=== PATIENT | male | born 1945 | race Caucasian/White ===

== ENCOUNTER 2016-09-18 07:40 | Day surgery (SDC) | payer OTHER ==
--- NOTE | ~2016-09-18 | EGD ---
EGD REPORT [facility] [address] [id number] NAME: PABLO PARIS : [birth year] STATUS : REG [facility]#: [id number] AGE: 71 ADM/REG DATE : 09/18/16 MR#: [id number] REPORT SERV DATE: 09/18/16 DICTATED BY: DAVEY FLORES DATE: 09/18/16 REPORT STATUS : Draft [facility]: [facility] DATE: 09/18/16 End[facility] Center Patient Name: Pablo Paris Date of : 1945 Attending MD: DAVEY FLORES MD Procedure Date No Time: 09/18/2016 Procedure: Colonoscopy Indications: FH of Colon Cancer - 1st degree relative Referring MD: LUZ MONROE Medicines: Propofol per Anesthesia Complications: No immediate complications. Procedure: Pre-Anesthesia Assessment: - ASA Grade Assessment: III - A patient with severe systemic disease. After I obtained informed consent, the scope was passed under direct vision. Throughout the procedure, the patient's blood pressure, pulse, and oxygen saturations were monitored continuously. The CF [id number] was introduced through the anus and advanced to the cecum, identified by appendiceal orifice and ileocecal valve. The colonoscopy was performed without difficulty. The patient tolerated the procedure well. The quality of the bowel preparation was good. Findings: Two sessile polyps were found in the cecum. The polyps were 5 mm in size. These polyps were removed with a hot biopsy forceps. Resection and retrieval were complete. Estimated blood loss: none. The exam was otherwise without abnormality on direct and retroflexion views. Impression: - Two 5 mm polyps in the cecum. Resected and retrieved. - The examination was otherwise normal on direct and retroflexion views. Recommendation: - Await pathology results. Procedure Code(s): --- Professional --- 49897, Colonoscopy, flexible, proximal to splenic flexure; with removal of tumor(s), polyp(s), or other lesion(s) by hot biopsy forceps or bipolar cautery Diagnosis Code(s): --- Professional --- D12.0, Benign neoplasm of cecum Z80.0, Family history of malignant neoplasm of digestive EGD REPORT [facility] [address] [id number] NAME: PABLO PARIS : [birth year] STATUS : [place] [facility] [place] PAT#: [id number] AGE: 71 ADM/REG DATE : 09/18/16 MR#: [id number] REPORT SERV DATE: 09/18/16 DICTATED BY: DAVEY FLORES. DATE: 09/18/16 REPORT STATUS : Draft TRANSCRIBED BY: [employer] DATE: 09/18/16 organs CPT copyright 2013 [employer]. All rights reserved. The codes documented in this report are preliminary and upon floor cashier review may be revised to meet current compliance requirements. DAVEY FLORES MD 09/18/2016 9:49 AM This report has been signed electronically. Number of Addenda: 0 Note Initiated On: 09/18/2016 9:23 AM Scope Withdrawal Time 0 hours 6 minutes 0 seconds [id number] [id number]
[~2016-09-18 07:40] MED LIST: ASAB PO; D100 PO; DEPAKOTEER PO; FLOMAX4 PO; LEVOTHYROXIN50 MCG PO; PROSCAR5 PO; SIN25 PO; ZOL50 PO; ZYRTEC ALLGY10 MG PO
== END 2016-09-18 23:59 | disposition home or self-care (01) ==
LOC: DMU 07:40
PROVIDERS: Internal Medicine Gastroenterology
PROC: 0DBH8ZZ Excision of Cecum, Via Natural or Artificial Opening Endoscopic (ICD-10-PCS; principal; 2016-09-18 09:30)
DX: Z12.11 Encounter for screening for malignant neoplasm of colon (principal); Z80.0 Family history of malignant neoplasm of digestive organs; K51.40 Inflammatory polyps of colon without complications; I69.354 Hemiplegia and hemiparesis following cerebral infarction affecting left non-dominant side; N40.0 Benign prostatic hyperplasia without lower urinary tract symptoms; E03.9 Hypothyroidism, unspecified; G20 Parkinson's disease; Z85.71 Personal history of Hodgkin lymphoma; Z92.3 Personal history of irradiation; Z92.21 Personal history of antineoplastic chemotherapy; Z86.79 Personal history of other diseases of the circulatory system; Z98.890 Other specified postprocedural states; Z79.82 Long term (current) use of aspirin; Z79.899 Other long term (current) drug therapy
CPT/HCPCS: 88305